=== PATIENT | female | born 1975 | race Caucasian/White ===

== ENCOUNTER 2019-04-27 07:04 | Emergency (ER) | payer OTHER ==
[~2019-04-27] VITALS: Ht 172.7 cm; Wt 102.1 kg
[~2019-04-27 07:04] MED LIST: AUGMENTIN 875-1 EACH PO; CELEXA20 MG PO; CIPROFLOXIN HC2.5 M1 OPHTHALMIC; CLEOCIN HCL150 MG PO; COUMADIN; DOXYCYCLINE 10100 MG PO; EPSICOM; FLONASE 0.05%50 MCG NASAL; HYDROCODONE-ACE15 ML PO; IBUPROFEN 800800 M1 PO; IBUPROFEN 800800 MG PO; KEFLEX500 MG PO; NORCO 5-325 TA1 EACH; NORCO 5-325 TA1 EACH PO; PENICILLIN V P500 MG PO; PROMETHAZINE/C118 ML PO; SUSTIVA50 MG; TRIUMEQ TABLET1 EACH PO
[2019-04-27 07:31] LABS: URINE BILIRUBIN NEGATIVE (Negative); URINE BLOOD 3+ (Negative); URINE CLARITY CLEAR; URINE COLOR ORANGE; URINE GLUCOSE-RANDOM NEGATIVE (Negative); URINE KETONES NEGATIVE (Negative); URINE PROTEIN 1+ (Negative)
[2019-04-27 07:34] LABS: URINE LEUKOCYTES-REFLEX 2+ (Negative); URINE NITRITE-REFLEX POSITIVE (Negative)
[2019-04-27 07:46] LABS: CASTS None Seen /LPF (None Seen); SQUAMOUS >10 Many /LPF (0-3)
[2019-04-27 07:48] LABS: BACTERIA-REFLEX >30 Many /HPF (None Seen); CRYSTALS None Seen /LPF (None Seen); URINE RBC >20 Many /HPF (0-2); URINE WBC-REFLEX >25 Many /HPF (0-5)
[2019-04-27] MEDS ORDERED: HYDROCODON-ACE1 EAC7 PO (07:52)
[2019-04-27] MEDS ORDERED: CIPRO250 M1 PO (07:52)
[2019-04-27 08:01] VITALS: BP 135/85
== END 2019-04-27 08:01 | disposition home or self-care (01) ==
LOC: M.ERS 07:04
PROVIDERS: Emergency Medicine
DX: N39.0 Urinary tract infection, site not specified (principal); Z21 Asymptomatic human immunodeficiency virus [HIV] infection status; Z90.710 Acquired absence of both cervix and uterus; Z98.890 Other specified postprocedural states; Z90.89 Acquired absence of other organs; Z88.5 Allergy status to narcotic agent; Z88.2 Allergy status to sulfonamides

== ENCOUNTER 2020-04-06 06:59 | Emergency (ER) | payer OTHER ==
[~2020-04-06] VITALS: Ht 172.7 cm; Wt 102.1 kg
[~2020-04-06 06:59] MED LIST changes: +CIPRO250 M1 PO; +HYDROCODON-ACE1 EAC7 PO
[2020-04-06] MEDS ORDERED: MEDROLDOSEPACK PO (07:31)
[2020-04-06 07:49] VITALS: BP 151/76
== END 2020-04-06 07:49 | disposition home or self-care (01) ==
LOC: M.ERS 06:59
DX: S50.861A Insect bite (nonvenomous) of right forearm, initial encounter (principal); H02.844 Edema of left upper eyelid; Z88.2 Allergy status to sulfonamides; Z88.5 Allergy status to narcotic agent; Z98.51 Tubal ligation status; Z90.89 Acquired absence of other organs; W57.XXXA Bitten or stung by nonvenomous insect and other nonvenomous arthropods, initial encounter; Y93.89 Activity, other specified; Y92.89 Other specified places as the place of occurrence of the external cause; Y99.8 Other external cause status

== ENCOUNTER 2020-10-21 17:52 | Emergency (ER) | payer OTHER ==
[~2020-10-21] VITALS: Ht 172.7 cm; Wt 108.9 kg
[~2020-10-21 17:52] MED LIST changes: +MEDROLDOSEPACK PO
[2020-10-21 19:22] LABS: ABSOLUTE BASOPHILS 0.1 thou/uL (0.0-0.2); ABSOLUTE EOSINOPHILS 0.1 thou/uL (0.0-0.7); ABSOLUTE LYMPHOCYTES 2.9 thou/uL (0.8-5.3); ABSOLUTE MONOCYTES 0.6 thou/uL (0.0-1.2); ABSOLUTE NEUTROPHILS 8.3 thou/uL (1.6-8.1); BASOPHILS 0.8 %; EOSINOPHILS 0.9 %; HEMATOCRIT 40.7 % (37.0-47.0); HEMOGLOBIN 13.5 gm/dL (12.0-15.0); LYMPHOCYTES 24.1 %; MCH 31.2 pg (26.0-34.0); MCHC 33.2 g/dL (28.0-37.0); MCV 93.9 fL (80.0-100.0); MONOCYTES 4.7 %; NUCLEATED RBCS 0 /100WBC; PLATELET COUNT* 254 thou/uL (150-400); POLYS 69.5 %; RBC 4.34 mil/uL (4.20-5.00); RDW-CV 13.2 % (10.5-14.5); WBC 11.9 thou/uL (4.0-11.0)
[2020-10-21 19:25] LABS: URINE BILIRUBIN NEGATIVE (Negative); URINE BLOOD 2+ (Negative); URINE CLARITY CLEAR; URINE COLOR YELLOW; URINE GLUCOSE-RANDOM NEGATIVE (Negative); URINE KETONES TRACE (Negative); URINE LEUKOCYTES-REFLEX NEGATIVE (Negative); URINE NITRITE-REFLEX NEGATIVE (Negative); URINE PROTEIN NEGATIVE (Negative); URINE SPECIFIC GRAVITY >= 1.030 (1.005-1.030); URINE UROBILINOGEN 0.2 E.U./dl (0.2-1.0)
[2020-10-21 19:28] LABS: ANION GAP 9 mmol/L (7-16); BUN 16 mg/dL (7-18); CALCIUM 8.3 mg/dL (8.5-10.1); CHLORIDE 104 mmol/L (98-107); CO2 28 mmol/L (21-32); GLUCOSE 91 mg/dL (70-99); SODIUM 141 mmol/L (136-145)
[2020-10-21 19:37] LABS: ALBUMIN 3.8 g/dL (3.4-5.0); ALKALINE PHOSPHATASE 73 U/L (46-116); LIPASE 133 U/L (73-393); SGOT 15 U/L (15-37); SGPT 21 U/L (30-65); TOTAL PROTEIN 7.2 g/dL (6.4-8.2)
[2020-10-21 19:38] LABS: TOTAL BILIRUBIN < 0.1 mg/dL (<0.1-1.0)
[2020-10-21 19:47] LABS: BACTERIA-REFLEX None Seen /HPF (None Seen); CASTS None Seen /LPF (None Seen); CRYSTALS None Seen /LPF (None Seen); MUCUS 0-3 Light strn/LPF (None Seen); SQUAMOUS >10 Many /LPF (0-3); URINE RBC 3-10 Few /HPF (0-2); URINE WBC-REFLEX None Seen /HPF (0-5)
[2020-10-21] MEDS ORDERED: BENTYL 10 MG CA10 M1 PO (20:20)
[2020-10-21 20:25] VITALS: BP 130/60
== END 2020-10-21 20:25 | disposition home or self-care (01) ==
LOC: M.ERS 17:52
PROVIDERS: Nurse Practitioner Family
DX: N93.9 Abnormal uterine and vaginal bleeding, unspecified (principal); Z88.5 Allergy status to narcotic agent; Z88.2 Allergy status to sulfonamides; Z90.89 Acquired absence of other organs; Z98.51 Tubal ligation status

== ENCOUNTER 2021-07-25 18:10 | Emergency (ER) | payer OTHER ==
[~2021-07-25] VITALS: Ht 172.7 cm; Wt 104.3 kg
[~2021-07-25 18:10] MED LIST changes: +BENTYL 10 MG CA10 M1 PO
[2021-07-25 19:56] VITALS: BP 140/80
== END 2021-07-25 19:57 | disposition home or self-care (01) ==
LOC: M.ERS 18:10
DX: H57.12 Ocular pain, left eye (principal); H43.392 Other vitreous opacities, left eye; Z98.890 Other specified postprocedural states; Z98.51 Tubal ligation status; Z90.89 Acquired absence of other organs; Z79.899 Other long term (current) drug therapy; Z88.5 Allergy status to narcotic agent; Z88.2 Allergy status to sulfonamides